=== PATIENT | male | born 1960 | race African-American/Black ===

== ENCOUNTER 2019-05-28 18:18 | Emergency (ER) | payer SELFPAY ==
[~2019-05-28] VITALS: Ht 190.5 cm; Wt 100.0 kg
[2019-05-28 18:38] VITALS: BP 150/90
== END 2019-05-28 19:43 | disposition left against medical advice (07) ==
LOC: ER 18:18
DX: Z53.21 Procedure and treatment not carried out due to patient leaving prior to being seen by health care provider (principal); M32.9 Systemic lupus erythematosus, unspecified

== ENCOUNTER 2023-05-21 08:30 | Emergency (ER) | payer MEDICARE, OTHER ==
[~2023-05-21] VITALS: Ht 182.9 cm; Wt 104.0 kg
[2023-05-21 08:36] VITALS: O2SAT 97
[2023-05-21 09:31] LABS: BASOPHILS % 0.6 % (0.0-2.0); EOSINOPHILS % 0.8 % (0.0-5.0); HEMATOCRIT. 44.7 % (42.0-52.0); LYMPHOCYTES % 18.6 % (20.0-50.0); MEAN CORPUSCULAR HGB CONC 31.3 g/dL (31.0-37.0); MEAN CORPUSCULAR VOLUME 92.6 fL (80.0-94.0); MEAN PLATELET VOLUME 9.6 fl (7.4-10.4); MONOCYTES % 13.1 % (2.0-8.0); NEUTROPHILS % 66.9 % (40.0-76.0); PLATELET 172 x1000/uL (130-400); RED BLOOD CELL COUNT 4.83 mill/uL (4.7-6.1); RED CELL DISTRIBUTION WIDTH 16.5 % (11.6-14.6); WHITE BLOOD COUNT 3.8 x1000/uL (4.5-11.0)
[2023-05-21 09:34] LABS: CLARITY URINE CLOUDY (CLEAR); COLOR URINE DARK YELLOW (YELLOW); GLUCOSE URINE NEGATIVE (NEGATIVE); KETONES URINE 2+ (NEGATIVE); LEUKOCYTE ESTERASE URINE TRACE (NEGATIVE); NITRITE URINE NEGATIVE (NEGATIVE); OCCULT BLOOD URINE 2+ (NEGATIVE); PROTEIN URINE 3+ (NEGATIVE); SPECIFIC GRAVITY URINE 1.036 (1.005-1.030)
[2023-05-21 09:48] LABS: BACTERIA URINE FEW; SQUAMOUS EPITHELIAL CELL URINE FEW /lpf (RARE/1+); YEAST URINE NONE SEEN
[2023-05-21] MEDS ORDERED: CEFTRIAXONE 1GM PREMIX 50 ML IV NR (10:45)
[2023-05-21 11:30] LABS: ALANINE AMINOTRANSFERASE 51 IU/L (10-49); ALBUMIN 3.8 g/dL (3.2-4.8); ASPARTATE AMINOTRANSFERASE 61 IU/L (<34); BILIRUBIN TOTAL 0.9 mg/dL (0.1-1.0); CARBON DIOXIDE 28 mEq/L (21-32); CHLORIDE 105 mEq/L (98-107); CREATININE 0.9 mg/dL (0.6-1.3); GLUCOSE 77 mg/dL (70-105); POTASSIUM 3.9 mEq/L (3.5-5.1); PROTEIN TOTAL 8.3 g/dL (6.0-8.3); SODIUM 140 mEq/L (136-145); TROPONIN I HIGH SENSITIVITY 16 ng/L (3.0-53); UREA NITROGEN BLOOD 9 mg/dL (9-23)
[2023-05-21 11:35] LABS: ETHANOL BLOOD < 10 mg/dL (<10)
[2023-05-21 13:30] VITALS: BP 160/62; PULSE 91; RESP 20; TEMP 98.1
[2023-05-21] MEDS ORDERED: CIPR500T5 MT (13:31)
== END 2023-05-21 14:05 | disposition home or self-care (01) ==
LOC: ER 08:30 → CANBEDREQ 15:53
DX: N39.0 Urinary tract infection, site not specified (principal)
CPT/HCPCS: 80053; 81003; 80320; 83690; 85025; 84484; 36415; 71045; 74176; 93005; 96365; 99285; J0696; G0480

== ENCOUNTER 2023-09-10 16:27 | Emergency (ER) | payer MEDICARE, MEDICAID ==
[~2023-09-10] VITALS: Ht 180.3 cm; Wt 104.0 kg
[~2023-09-10 16:27] MED LIST: CIPR500T5 MT
[2023-09-10 16:32] VITALS: TEMP 98.3; O2SAT 97
[2023-09-10 17:13] LABS: HEMATOCRIT. 45.3 % (42.0-52.0); MEAN CORPUSCULAR HEMOGLOBIN 31.2 pg (28.0-32.0); MEAN CORPUSCULAR HGB CONC 33.1 g/dL (31.0-37.0); MEAN CORPUSCULAR VOLUME 94.1 fL (80.0-94.0); RED BLOOD CELL COUNT 4.82 mill/uL (4.7-6.1); WHITE BLOOD COUNT 4.6 x1000/uL (4.5-11.0)
[2023-09-10 17:17] LABS: DIFFERENTIAL COMMENT 1
[2023-09-10 17:31] LABS: ALANINE AMINOTRANSFERASE 44 IU/L (10-49); ALBUMIN 4.5 g/dL (3.2-4.8); ASPARTATE AMINOTRANSFERASE 73 IU/L (<34); BILIRUBIN TOTAL 1.3 mg/dL (0.1-1.0); CALCIUM 9.3 mg/dL (8.7-10.4); CARBON DIOXIDE 26 mEq/L (21-32); CHLORIDE 103 mEq/L (98-107); GLUCOSE 86 mg/dL (70-105); POTASSIUM 3.2 mEq/L (3.5-5.1); PROTEIN TOTAL 8.7 g/dL (6.0-8.3); SODIUM 138 mEq/L (136-145); UREA NITROGEN BLOOD 6 mg/dL (9-23)
[2023-09-10 17:41] LABS: MEAN PLATELET VOLUME 10.6 fl (7.4-10.4); PLATELET 124 x1000/uL (130-400)
[2023-09-10 17:45] LABS: PLATELET ESTIMATE DECREASED
[2023-09-10] MEDS ORDERED: ACETAMINOPHEN 325MG TABLET PO ONE (19:30)
[2023-09-10] MEDS ORDERED: FAMO-135 MT (19:30)
[2023-09-10] MEDS ORDERED: FAMOTIDINE 20MG TABLET PO ONE (19:30)
[2023-09-10] MEDS ORDERED: NICO-645 TP (19:30)
[2023-09-10] MEDS ORDERED: POTASSIUM CHLORIDE 20MEQ TABLET SR PO ONE (19:30)
[2023-09-10 20:58] VITALS: BP 148/81; PULSE 78; RESP 20
[2023-09-10] MEDS: POTASSIUM CHLORIDE 20MEQ TABLET SR PO NR (20:58)
[2023-09-10] MEDS: FAMOTIDINE 20MG TABLET PO NR (20:58)
[2023-09-10] MEDS: ACETAMINOPHEN 325MG TABLET PO NR (20:58)
== END 2023-09-10 20:59 | disposition home or self-care (01) ==
LOC: ER 16:27
DX: R09.81 Nasal congestion (principal); R05.9 Cough, unspecified; Z98.890 Other specified postprocedural states
CPT/HCPCS: 36415; 71045; 80053; 85025; 99284